=== PATIENT | female | born 1995 | race Caucasian/White ===

== ENCOUNTER 2017-02-26 07:28 | Day surgery (SDC) | payer BC ==
--- NOTE | ~2017-02-26 | OP ---
Record Of Operation [facility] [address] [place]. [address] NAME: BRYCE GALAVIZ : 89 STATUS : [place] [facility] [place] PAT#: [id number] AGE: 22 ADM/REG DATE : 02/26/17 MR#: [id number] REPORT SERV DATE: 02/26/17 DICTATED BY: Osito BERMUDEZ DATE: 02/26/17 REPORT STATUS : Draft TRANSCRIBED BY: GENEVIEVE DATE: 02/26/17 DATE OF PROCEDURE: 02/26/2017 PREOPERATIVE DIAGNOSES: 1. Chronic cryptic tonsillitis. 2. Chronic halitosis. 3. Tonsillar hypertrophy. POSTOPERATIVE DIAGNOSES: 1. Chronic cryptic tonsillitis. 2. Chronic halitosis. 3. Tonsillar hypertrophy. NAME OF OPERATION: Tonsillectomy. FINDINGS: 3+ cryptic tonsils with debris and significant peritonsillar fibrosis, greater on the left; no adenoid tissue present. INDICATIONS: This 22-year-old female has had chronic sore throats and chronic tonsil stones, refractory to medical therapy. She has chronic halitosis. She has tried to take out the stones, but it is relentless. This has been going on for several years. The pros and cons, alternatives, benefits, risks, limitations, and complications, including but not limited to, postop hemorrhage, dehydration, reoperation to control bleeding, transfusion, tragedy, imponderables. She understands wishes to proceed. No guarantees expressed. Proper consent obtained. DESCRIPTION OF PROCEDURE: She was taken into the operating room and given general oral endotracheal anesthesia in the supine position. Sterile drapes were applied. The Russ mouth gag was gently inserted and suspended gently. The soft palate was retracted and the nasopharynx examined with a headlight mirror and there was no significant adenoid tissue present. The right tonsil was grasped with the Allis clamp. The anterior tonsillar pillar immediately adjacent to the tonsil was incised with the Harmonic Scalpel. The capsule of the tonsil was identified and the tonsil removed in the plane of the capsule with the Harmonic Scalpel. A few tiny oozers were cauterized with suction cautery. Bismuth subgallate paste was applied. There was considerable peritonsillar fibrosis. The same procedure was performed on the opposite side. There was more peritonsillar fibrosis on the left. Hemostasis was excellent. Estimated blood loss was 5 mL. The tonsils were sent separately for permanent pathology. She was awakened and extubated and taken to the recovery room in good condition and tolerated the procedure well. HOME GOING INSTRUCTIONS: Prescriptions were written for hydrocodone 7.5/325 APAP in 15 mL solution dispensed 14 ounces two to three teaspoons p.o. q.4-6 h. p.r.n. pain. A similar Record Of [address] [place]. [address] NAME: BRYCE GALAVIZ : 89 [place]US : [place] [facility] [place] PAT#: [id number] AGE: 22 ADM/REG DATE : 02/26/17 MR#: [id number] REPORT SERV DATE: 02/26/17 DICTATED BY: Osito BERMUDEZ DATE: 02/26/17 REPORT STATUS : Draft TRANSCRIBED BY: GENEVIEVE DATE: 02/26/17 prescription dated 03/03/2017 as her refill for the hydrocodone (not to be filled before 03/03/2017); generic Zofran 8 mg ODT, #10, one dissolved orally q.6 h. p.r.n. nausea or vomiting; amoxicillin 250 mg/teaspoon, 100 mL one teaspoon p.o. b.i.d.; and Magic mouthwash 14 ounces one teaspoon gargle and spit out q.2 hours p.r.n. pain, refill two. Recheck in the office in four weeks. AJ/GENEVIEVE Osito Bermudez M.D. / [id number] CC: Corrie Kumar D.O.
[~2017-02-26 07:28] MED LIST: BEYAZ 28 TABLE1 EACH PO; IBU400 PO; PROAIR HFA INH; SPIRO25 PO; WELLXL300 PO
== END 2017-02-26 17:13 | disposition home or self-care (01) ==
LOC: SDC 07:28
PROVIDERS: Specialist
PROC: 0CBPXZZ Excision of Tonsils, External Approach (ICD-10-PCS; principal; 2017-02-26 08:45)
DX: J35.1 Hypertrophy of tonsils (principal); R19.6 Halitosis; J45.909 Unspecified asthma, uncomplicated; Z79.899 Other long term (current) drug therapy; Z98.890 Other specified postprocedural states
CPT/HCPCS: 84703; 88304; A9270-GY; J2250; J2405; J2710; J3010